=== PATIENT | female | born 1960 | race Caucasian/White ===

== ENCOUNTER 2019-11-25 07:17 | Day surgery (SDC) | payer BC ==
[~2019-11-25 07:17] MED LIST: Bupivacaine 0.5% 50 ML MDV ONE; Lidocaine 1% with EPINEPHrine 1:100,000 50 ML MDV ONE
[2019-11-25] MEDS ORDERED: fentaNYL 250 MCG/5 ML SDV ONE (07:31)
[2019-11-25] MEDS ORDERED: Ondansetron 4 MG/2 ML SDV ONE (07:32)
[2019-11-25] MEDS ORDERED: Rocuronium 50 MG/5 ML Vial ONE (07:32)
[2019-11-25] MEDS ORDERED: Neostigmine Methylsulfate 1 MG/ML 5 ML Syringe ONE (07:32)
[2019-11-25] MEDS ORDERED: Dexamethasone 4 MG/ML SDV ONE (07:32)
[2019-11-25] MEDS ORDERED: Propofol 200 MG/20 ML SDV ONE (07:32)
[2019-11-25] MEDS ORDERED: Succinylcholine 200 MG/10 ML MDV ONE (07:32)
[2019-11-25] MEDS ORDERED: Glycopyrrolate 0.2 MG/ML 5 ML MDV ONE (07:32)
[2019-11-25] MEDS: Sodium Chloride 0.9% 1,000 ML IV SCH ×2 (07:56→11:21)
[2019-11-25] MEDS ORDERED: Docusate Sodium 100 MG Cap PO PRN (07:57)
[2019-11-25] MEDS ORDERED: Zolpidem 5 MG Tab PO PRN (07:57)
[2019-11-25] MEDS ORDERED: Benzocaine/Cetylpyridinium/Menthol Lozenge MUCMEM PRN (07:57)
[2019-11-25] MEDS ORDERED: Acetaminophen/HYDROcodone 325-5 MG Tab PO PRN ×2 (07:57→14:39)
[2019-11-25] MEDS ORDERED: hydrOXYzine HCL 100 MG/2 ML SDV IM PRN (07:57)
[2019-11-25] MEDS ORDERED: metroNIDAZOLE/Normal Saline 500 MG in Premix Bag 1 BAG IV ONE (08:15)
[2019-11-25] MEDS ORDERED: ceFAZolin 2 GM in Premix Bag 1 BAG IV ONE (08:15)
[2019-11-25] MEDS ORDERED: hydrOXYzine HCL 100 MG/2 ML SDV IM ONE (10:26)
[2019-11-25] MEDS ORDERED: fentaNYL 100 MCG/2 ML SDV IVPUSH ONE (10:27)
[2019-11-25] MEDS ORDERED: Ibuprofen 600 MG Tab PO PRN (13:57)
--- NOTE | 2019-11-26 11:13 | OR ---
DATE OF PROCEDURE: 11/25/2019 SURGEON: Charles Castaneda MD PROCEDURE: Bilateral transversus abdominis plane block. COMPLICATIONS: None. SCOUT EXECUTIVE: None. RISKS: Risks, benefits, alternatives, and limitations including, but not limited to infection, bleeding, injury to abdominal structures were explained to the patient who wished to proceed. PROCEDURE IN DETAIL: The patient was placed in supine position. The right side was addressed first. Using a 13 megahertz ultrasound probe, the transversus plane was readily identified. This was injected with approximately 90% of the solution. The other side was then performed in a same manner, same fashion, same technique in the same sequence using the same equipment. The patient tolerated the procedure well. Charles Castaneda MD /[id number]
--- NOTE | 2019-11-26 11:13 | OR ---
DATE OF PROCEDURE: 11/25/2019 SURGEON: Charles Castaneda MD PROCEDURE: Laparoscopic cholecystectomy. COMPLICATIONS: None. VICE PRESIDENT RISK MANAGEMENT: None. ANESTHESIA: General/local. RISKS: Risks, benefits, alternatives, and limitations including, but not limited to infection, bleeding, cystic duct injury, common bile duct injury, and other risks not listed here were explained to the patient and they wished to proceed. The patient understands these risks and wishes to proceed. PROCEDURE IN DETAIL: The patient was placed in supine position. Supraumbilical curvilinear incision was made and a Veress needle was used to enter the abdomen without abnormality. A drop test was performed without abnormality. The abdomen was subsequently insufflated. Two additional 5 mm ports were entered under direct visualization and an additional 10 mm port. The gallbladder was retracted cephalad. The infundibulum was retracted inferolaterally. Using blunt dissection, a "clear view" of the gallbladder was obtained with a single pulsatile structure in the gallbladder and a single nonpulsatile structure in the gallbladder. Once the 2 duct structures were dissected freely and a "clear view was obtained," these were clipped x3 and transected. The remaining 1/3rd of the gallbladder was removed off the gallbladder bed without difficulty. Minimal bleeding was controlled by electrocautery. The gallbladder was delivered through the superior port. The abdomen was then irrigated. The ports were irrigated. Air was removed. The wound was closed with 3-0 Vicryl and 4-0 Vicryl in interrupted running fashion. The patient tolerated the procedure well. Charles Castaneda MD /[id number]
== END 2019-11-25 18:40 | disposition home or self-care (01) ==
LOC: JP.SDS 07:17 → JP.MS 11:00 → JP.SDS 18:40
PROVIDERS: ATTEND Surgery
DX: K80.10 Calculus of gallbladder with chronic cholecystitis without obstruction (principal); K58.9 Irritable bowel syndrome, unspecified; K21.9 Gastro-esophageal reflux disease without esophagitis; E66.9 Obesity, unspecified; Z68.33 Body mass index [BMI] 33.0-33.9, adult
CPT/HCPCS: A9270-GY; J0171; J0330; J0690; J1100; J2405; J2704; J2710; J2795; J3010; J3410; J3490; J7030; J7050

== ENCOUNTER 2020-02-14 07:37 | Day surgery (SDC) | payer BC, OTHER ==
[2020-02-14] MEDS ORDERED: Sodium Chloride 0.9% 1,000 ML IV SCH (08:15)
[2020-02-14] MEDS ORDERED: Propofol 200 MG/20 ML SDV ONE ×2 (09:14→09:38)
[2020-02-14] MEDS ORDERED: Midazolam 1 MG/ML 2 ML SDV ONE (09:14)
[2020-02-14] MEDS ORDERED: fentaNYL 100 MCG/2 ML SDV ONE (09:14)
--- NOTE | 2020-02-15 09:09 | OR ---
DATE OF PROCEDURE: 02/14/2020 SURGEON: Charles Castaneda MD PROCEDURE: 1. Esophagogastroduodenoscopy. 2. Colonoscopy. COMPLICATIONS: None. MULTIPLE GAMES DEALER: None. ANESTHESIA: MAC. PREOPERATIVE DIAGNOSES: Abdominal pain/gastrointestinal bleeding. POSTOPERATIVE DIAGNOSES: Abdominal pain/gastrointestinal bleeding. RISKS: Risks, benefits, alternatives, and limitations including but limited to infection, bleeding, and perforation were explained to the patient, who wished to proceed. PROCEDURE IN DETAIL: The patient was placed in left lateral decubitus position. The EGD scope was introduced and advanced atraumatically to second part of the duodenum. No evidence of duodenitis or ulceration. Within the stomach, there was no hiatal hernia. No gastritis. No ulcers. The GE junction showed mild inflammation concerning for gastroesophageal reflux disease. This was biopsied in all 4 quadrants. The remainder of esophagus was normal. Digital rectal exam was performed, which showed a prominent external hemorrhoid. No other abnormalities were noted. The scope was then introduced and advanced atraumatically to the ileocecal valve. The ileocecal valve was cannulated. No evidence of ileitis. The scope was brought back through the ascending, transverse, and descending colon and retroflexed. No evidence of old or new blood. No masses. No polyps. No abnormalities on retroflexion. No diverticulosis or diverticulitis. The patient tolerated the procedure well. Charles Castaneda MD /[id number]
== END 2020-02-14 10:56 | disposition home or self-care (01) ==
LOC: JP.SDS 07:37
PROVIDERS: ATTEND Surgery
DX: K64.4 Residual hemorrhoidal skin tags (principal); K29.50 Unspecified chronic gastritis without bleeding; K20.0 Eosinophilic esophagitis; F32.9 Major depressive disorder, single episode, unspecified; E66.9 Obesity, unspecified; Z68.31 Body mass index [BMI] 31.0-31.9, adult
CPT/HCPCS: 43239; 45378; 88305; J2250; J2704; J3010; J7030